=== PATIENT | female | born 1965 | race Caucasian/White ===

== ENCOUNTER → 2018-11-21 12:40 | Outpatient (CLI) | payer SELFPAY ==
[2018-10-17 14:58] VITALS: BMI 27.8
--- NOTE | 2018-11-21 12:46 | BI_ITS ---
MAMMOGRAPHY - BILATERAL SCREENING REASON FOR EXAM: Female, 52 years old. Routine annual screening examination. PERTINENT HISTORY: Non-contributory. TECHNIQUE: Digital bilateral breast azul (3D mammographic acquisition) in the CC and MLO projections. 2-D mediolateral oblique (MLO) and craniocaudad (CC) views of both breasts were obtained. CAD: Full Field Digital Mammography with Computer Added Detection was performed. COMPARISON: Comparison is made with prior abdomen examination dated July 24, 2016. FINDINGS: Breast Composition: The breasts are heterogeneously dense, which may obscure small masses. There are no dominant masses or suspicious calcifications. No other significant abnormalities are identified. There has been no significant change since the prior study. BI/SCREENING MAMM (CAD), BILAT IMPRESSION: Stable bilateral screening mammogram. Yearly follow-up mammogram recommended. (A) ASSESSMENT CATEGORY: BIRADS Category 1: Negative. A letter regarding these results will be sent to the patient by the facility within 30 days. Approximately 10% of breast cancers are not detected by mammography. A normal mammogram should not delay biopsy of a clinically suspicious abnormality. [id number] Electronically Signed: Pierce Alas, at 9:39 EDT , Service support ,
== END ==
PROVIDERS: Family Provider Family Medicine; PCP Family Medicine; Referring Provider Family Medicine; Visit Provider Family Medicine
DX: Z12.31 Encounter for screening mammogram for malignant neoplasm of breast (principal)
CPT/HCPCS: 77063; 77067

== ENCOUNTER → 2019-02-12 | Outpatient (CLI) | payer SELFPAY ==
[2018-10-17 14:58] VITALS: BMI 27.8
--- NOTE | 2019-02-12 15:00 | EKG12_ITS ---
Test Reason : BRADYCARDIA Blood Pressure : / mmHG Vent. Rate : 074 BPM Atrial Rate : 046 BPM P-R Int : 154 ms QRS Dur : 096 ms QT Int : 376 ms P-R-T Axes : 042 -23 150 degrees QTc Int : 417 ms Marked sinus bradycardia with frequent Premature ventricular complexes Possible Left atrial enlargement Nonspecific ST and T wave abnormality Poor R wave progression Abnormal ECG Confirmed by KIANA SAAVEDRA, MANUELITO ([id number]), editor house organ PRADEEP BELLE ([id number]) on 02/14/2019 6:43:49 AM Referred By: Andres Case Confirmed By:MANUELITO BRUNO MD
== END | disposition home or self-care (01) ==
PROVIDERS: Family Provider Family Medicine; PCP Family Medicine; Referring Provider Family Medicine; Visit Provider Family Medicine
DX: R00.1 Bradycardia, unspecified (principal)
CPT/HCPCS: 93005

== ENCOUNTER → 2019-02-28 | Outpatient (CLI) | payer SELFPAY ==
[2019-02-18 10:20] VITALS: BMI 27.8
--- NOTE | 2019-02-28 14:59 | ECHOD_ITS ---
Reason For Study: Arrhythmia Procedure This was a 2D Doppler, Color Flow transthoracic echocardiogram. Exam performed in department. Left Ventricle Moderately dilated left ventricle. The estimated ejection fraction is 35-40 %. Stage 1 diastolic dysfunction. There is moderate global hypokinesis of the left ventricle. Right Ventricle Normal size and thickness. Normal systolic function. Atria Normal left atrium. Normal right atrium. Normal atrial septum. Mitral Valve The mitral valve is structurally normal. No prolapse or stenosis seen. Tricuspid Valve Normal tricuspid valve. Trivial tricuspid valve insufficiency. Right ventricular systolic pressure estimated to be 29 mmHg. Aortic Valve Normal aortic valve. Trisinus/trileaflet aortic valve. Pulmonic Valve Normal pulmonic valve. Great Vessels Normal aortic root. Normal arch. Normal inferior vena cava. Inferior vena cava collapse with sniff. Pericardium/Pleural No pericardial effusion. MMode/2D Measurements & Calculations LVIDd: 5.8 cm IVSd: 0.99 cm Ao root diam: 3.3 cm LVIDs: 4.3 cm LVPWd: 1.1 cm RVDd: 2.6 cm FS: 25.6 % LAV(MOD-bp): 49.9 ml LA A4 area: 17.5 cm2 LA dimension(2D): 3.4 cm LAV(MOD-bp) Indexed: 27.8 ml/m2 LAV(MOD-sp2): 47.0 ml LAV(MOD-sp4): 46.0 ml RA A4 area: 18.0 cm2 Doppler Measurements & Calculations MV E max jamie: 54.6 cm/sec Lat Peak E' Jamie: 6.1 cm/sec Med Peak E' Jamie: 4.8 cm/sec MV A max jamie: 68.6 cm/sec E/E' lat: 9.0 E/E' med: 11.4 MV E/A: 0.80 Ao V2 max: 126.6 cm/sec LV V1 max: 80.5 cm/sec PA V2 max: 77.9 cm/sec Ao max P.6 mmHg LV V1 max P.7 mmHg TR max jamie: 246.8 cm/sec TR max P.4 mmHg Interpretation Summary Moderately dilated left ventricle. The estimated ejection fraction is 35-40 %. Stage 1 diastolic dysfunction. There is moderate global hypokinesis of the left ventricle. Trivial tricuspid valve insufficiency. Right ventricular systolic pressure estimated to be 29 mmHg. Frequent PVCs. There is no comparison study available. Ordering Physician: Andres Case Referring Physician: Andres Case Performed By: Tanna Holguin RDCS
== END | disposition home or self-care (01) ==
LOC: CVS 14:55
PROVIDERS: Family Provider Family Medicine; PCP Family Medicine; Referring Provider Family Medicine; Visit Provider Family Medicine
DX: R00.1 Bradycardia, unspecified (principal)
CPT/HCPCS: 93306

== ENCOUNTER → 2019-09-26 10:16 | Outpatient (CLI) | payer SELFPAY ==
[2019-09-26 09:58] VITALS: BMI 28.8
[2019-09-26 10:30] LABS: Bacteria 0 SEEN /hpf (None Seen); Mucous, Urine 0 SEEN /hpf (<or=2+)
[2019-09-26 12:33] LABS: Glucose, Dipstick Normal (Normal); Ketone-Dipstick Negative (Negative); Leukocyte Esterase-Dipstick 500 /ul (Negative); Nitrite-Dipstick Negative (Negative); Occult Blood-Urine 150 /ul (Negative); Protein-Dipstick 15 mg/dl (Negative); Urine Bilirubin Dipstick Negative (Negative); Urine Urobilinogen Normal (Normal); Urine pH 6.5 (5.0 - 8.0)
[2019-09-26 12:35] LABS: Color, Urine Yellow (Yellow); Urine Clarity Clear (Clear)
[2019-09-26 12:56] LABS: Red Blood Cells-Urine 10-25 SEEN /hpf (0-5); Squamous Epithelial Cells - UA 5-10 SEEN /hpf (5-10); White Blood Cells 25-50 SEEN /hpf (0-5)
== END ==
PROVIDERS: PCP Family Medicine; Visit Provider Nurse Practitioner Family
DX: R30.0 Dysuria (principal)
CPT/HCPCS: 81001; 87086; 87088